=== PATIENT | male | born 1965 ===

== ENCOUNTER 2017-02-12 17:30 | Emergency (ER) | payer BC ==
[2017-02-12 18:07] VITALS: BP 123/75
--- NOTE | 2017-02-12 18:29 | UC ---
Throat Pain/Nasal Alberto HPI - HPI Summary HPI Summary: 52 year old male presents with complains cough, sinus congestion, and post nasal drip. - History of Current Complaint Chief Complaint: UCRespiratory Stated Complaint: COUGH/SCRATCHY THROAT Time Seen by Provider: 02/12/17 18:28 - Allergies/Home Medications Allergies/Adverse Reactions: Allergies Allergy/AdvReac Type Severity Reaction Status Date / Time Ranitidine [From Zantac] Allergy Airway Verified 02/12/17 18:07 Obstruction Home Medications: Home Medications Lisinopril TAB* [Prinivil TAB 10 MG*] 20 mg PO DAILY 02/12/17 [History Confirmed 02/12/17] PARoxetine HCL TAB* [Paxil TAB*] 20 mg PO DAILY 02/12/17 [History Confirmed 06/21] PMH/Surg Hx/FS Hx/Imm Hx - Surgical History Surgical History: Yes Surgery Procedure, Year, and Place: Corneal transplant 2001 - Social History Alcohol Use: Weekly Substance Use Type: None Smoking Status (MU): Former Smoker Type: Cigars Review of Systems Constitutional: Negative Skin: Negative Eyes: Negative ENT: Sore Throat, Nasal Discharge, Sinus Congestion, Sinus Pain/Tenderness Respiratory: Cough Cardiovascular: Negative Gastrointestinal: Negative Genitourinary: Negative Motor: Negative Neurovascular: Negative Musculoskeletal: Negative Neurological: Negative Psychological: Negative All Other Systems Reviewed And Are Negative: Yes Physical Exam Triage Information Reviewed: Yes Vital Signs: Initial Vital Signs Temp 36.4 C 02/12/17 18:03 Pulse 70 02/12/17 18:03 Resp 16 02/12/17 18:03 BP 123/75 02/12/17 18:03 Pulse Ox 99 02/12/17 18:03 Eye Exam: Normal ENT Exam: Normal ENT: Positive: Pharyngeal erythema Dental Exam: Normal Neck exam: Normal Neck: Positive: 1 Respiratory Exam: Normal Cardiovascular Exam: Normal Abdominal Exam: Normal Musculoskeletal Exam: Normal Neurological Exam: Normal Psychological Exam: Normal Skin Exam: Normal Throat Pain/Nasal Course/Dx - Differential Dx/Diagnosis Provider Diagnoses: SINUSITIS. PHARYNGITIS Discharge - Discharge Plan Condition: Stable Disposition: HOME Prescriptions: Azithromycin TAB* [Zithromax TAB (Z-JOE) 250 mg #6 tabs] 2 tab PO .TODAY, THEN 1 DAILY #1 joe Loratadine [Claritin 10 MG CAP] 10 mg PO BEDTIME #30 cap guaiFENesin/CODIEN 100MG-10MG* [Robitussin AC 100Mg-10Mg*] 5 ml PO Q4H PRN #120 udc MDD 20 ml PRN Reason: Cough Patient Education Materials: Pharyngitis (ED) Referrals: Raoul Swanson MD [Primary Care Provider] -
== END 2017-02-12 18:41 | disposition home or self-care (01) ==
LOC: UCCORT 17:30
DX: J32.9 Chronic sinusitis, unspecified (principal); J02.9 Acute pharyngitis, unspecified
CPT/HCPCS: 99202; G0463